=== PATIENT | male | born 1980 | race Caucasian/White ===

== ENCOUNTER 2017-06-29 08:59 | Emergency (ER) | payer OTHER ==
[~2017-06-29] VITALS: Ht 189.2 cm; Wt 107.5 kg
[~2017-06-29 08:59] MED LIST: BACTRIM DS 8001 TAB PO; EFFEXOR100 MG PO; FLOMAX 0.4MG C0.4 MG PO; LORTAB 500 MG-71 TAB PO; MOTRIN800 MG PO; PERCOCET 325 MG1 TA3 PO; PROZAC40 MG PO; TOPROL XL 50MG50 MG PO; TORADOL10 M2 PO; VOLTAREN75 MG PO; XANAX 1MG TABLET1 MG PO; ZOFRAN4 MG PO
[2017-06-29] MEDS ORDERED: FLUOXETINE20 MG PO (09:08)
--- OUTSIDE RECORDS SUMMARY | 2017-06-29 09:15 | External Medical Summary Rpt ---
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 [address]- Discharge Disposition: OP Self Care or Home Attending Physician: JESSICA ARELLANO MD-ORT Admitting Physician: JESSICA ARELLANO MD-ORJulissa Referring Physician: JESSICA ARELLANO MD-ORJulissa Reason for Visit PREPATELLAR BURSITIS, RIGHT KNEE Vital Signs No data available for this section Problem List No data available for this section Allergies, Adverse Reactions, Alerts No data available for this section Medications No data available for this section Results No data available for this section Immunizations No data available for this section Procedures No data available for this section Social History No data available for this section Assessment and Plan No data available for this section Hospital Discharge Instructions No data available for this section
--- OUTSIDE RECORDS SUMMARY | 2017-06-29 09:15 | External Medical Summary Rpt ---
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 [address]- [phone] Discharge Disposition: OP Self Care or Home Attending Physician: JESSICA ARELLANO MD-ORT Admitting Physician: JESSICA ARELLANO MD-ORJulissa Referring Physician: JESSCIA ARELLANO MD-ORJulissa Reason for Visit PREPATELLAR BURSITIS, [...]
--- OUTSIDE RECORDS SUMMARY | 2017-06-29 09:16 | External Medical Summary Rpt | CCD ---
Demographics Preferred Language Wolof Marital Status Unknown Jewish Affiliation Unknown Race Unknown Ethnic Group Unknown Author Author , ANGEL Organization [facility] Address Unknown Phone [email or web address] Immunization Name Date Rout CVX Reac Dose Comm Prov Is Faci e tion ent ider Refu lity Give sed n Td 03-0 9 999 Hist H201 No H201 (zena 6-19 oric lt), 97 al Info adso rmat rbed ion - Sour ce Unsp ecif ied
--- OUTSIDE RECORDS SUMMARY | 2017-06-29 09:16 | External Medical Summary Rpt ---
Author Author [facility]AR[facility]cazar, [employer] Organization [employer] Address Unknown Phone Unavailable
--- OUTSIDE RECORDS SUMMARY | 2017-06-29 09:16 | External Medical Summary Rpt | CCD ---
Author Author , ANGEL ALTAMIRANO Address Unknown Phone [email or web address] Purpose Continuity of Care Document - through 2016 Problems Code Diagnosis DOS Provider Status S60.00XA CONTUSION OF UNSP FINGER WITHOUT DAMAGE TO NAIL, INIT ENCNTR
--- OUTSIDE RECORDS SUMMARY | 2017-06-29 09:16 | External Medical Summary Rpt | CCD ---
Author Author , ANGEL ALTAMIRANO Address Unknown Phone [email or web address] Purpose Continuity of Care Document - through 2016 Problems Code Diagnosis DOS Provider Status S60.00XA CONTUSION OF UNSP FINGER WITHOUT DAMAGE TO NAIL, INIT ENCNTR
--- OUTSIDE RECORDS SUMMARY | 2017-06-29 09:16 | External Medical Summary Rpt | CCD ---
Author Author [employer] Organization [employer] Address Unknown Phone Unavailable Purpose Continuity of Care Document - through 2016
--- OUTSIDE RECORDS SUMMARY | 2017-06-29 09:16 | External Medical Summary Rpt | CCD ---
Demographics Preferred Language Thai Marital Status Unknown Methodist Affiliation Unknown Race Unknown Ethnic Group Unknown Author Author , ANGEL Organization [facility] Address Unknown Phone [email or web address] Immunization Name Date Rout CVX Reac Dose Comm Prov Is Faci e tion ent ider Refu lity Give sed n Td 03-0 9 999 Hist H201 No H201 (zena 6-19 oric lt), 97 al Info adso rmat rbed ion - Sour ce Unsp ecif ied
--- NOTE | 2017-06-29 09:52 | Emergency Room Report ---
History of Present Illness Time Seen by [id number] Presenting Problem in Triage Pt arrived:Walked Presenting Problem:PT C/O NECK, SHOULDER, AND BACK PAIN. POSSIBLE HERNIATED DISC. 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 N Clinical Suspician of Infection? N Mental Status: 1 - Regular (Normal Baseline) Sepsis Risk:Low Sepsis Risk Have you (or family members/close friends) recently traveled outside the [place]? N If Yes, where/when: Have you had exposure to infectious disease within the past month? N TB? Other? Specify: Patient of Ariane Zambrano, being treated for chronic radiculopathy with onset gradually several weeks ago, here because Diclofenac and tizanadine not working. Has chronic pain to left trapezius area radiating to LUE with no acute changes today. Has chronic lumbar pain due to stenosis with no change in bowel/.bladder function today. He ambulates to stretcher in [facility]. ALLERGIES Coded Allergies: MDX - Penicillin (Penicillin) (Intermediate, I-RASH 05/15/09) Converted from Drug Class Allergy: Penicillins Converted Allergy Severity of U Converted Allergy Reaction of Converted from Ingredient Allergy: Penicillin MDX - Penicillin V (From Penicillin V Potassium) (05/16/09) Converted from Generic Allergy: Penicillin V Potassium Home Medications Active Scripts Ketorolac Tromethamine (Toradol) 10 MG PO Q12HP #10 TAB Prov: 05/05/15 Reported Medications Metoprolol Succinate Xl (Toprol Xl) 50 MG PO DAILY Fluoxetine Hcl (Fluoxetine 20MG) 20 MG PO DAILY History Medical History General CAD? No Angina: No [place]: No Hypertension? Yes Hyperlipidemia? No CHF? No DVT? No PE? No COPD? No Asthma? No Anemia? No GERD? No Gastric ulcers? No GI Bleed? No Hernia? No Thyroid Problems? No Hypothyroidism? No CVA? No Seizures? No Diabetes? No Insulin Dependent: No Insulin Pump: No Home FSBS? No Renal Insuffiency? No End Stage Renal Disease? No UTI? No Stones? Yes BPH? No GB Disease: Yes Nephritic Syndrome? No Asplenia? No Hepatitis? No Sickle Cell Disease? No Arthritis? No Migraines? No Cataracts? No Glaucoma? No MRSA? No HIV? No TB? No Anxiety? No Depression? Yes Cancer? No More? No Immunization Hx DT/Tetanus 1-4 YRS Flu NEVER Pneumonia NEVER Surgical Hx Previous Surgery?Y ORAL SURGERY LITHOTRIPSY 05/03 CHOLECYSTECTOMY RIGHT KNEE Family History Family Hx Diabetes Yes CAD Yes Hypertension Yes Hyperlipidemia Yes Cancer Yes TB No Social History Smoking Hx Smoker: Current Every Day Smoker Tobacco: Yes Type Cigarettes Packs/day 1 1/2 - 2 Packs Alcohol Alcohol: No Review of Systems All Other Systems Reviewed and Negative Psychiatric/Neurological pre-existing deficit Physical Exam Vital Signs Vital Signs Date Time Temp Pulse Resp B/P Pulse O2 O2 Flow FiO2 Ox Delivery Rate 06/29 1026 98.0 60 18 137/99 96 06/29 0902 98.0 72 18 157/103 95 General Appearance normal appearance, WD/WN, no apparent distress Eye Exam - bilateral eye normal exam, bilateral eye PERRL, bilateral eye EOMI Neck normal inspection, non-tender, supple, full range of motion (pain L trapezius) Respiratory Status Yes: trachea midline, chest symmetrical, non tender chest. No: respiratory distress, tender on palpation, use of accessory muscles, pain on inspiration, pain on expiration. Lung Sounds bilateral: normal breath sounds, lungs clear. 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 Glascow Coma Scale Glascow Coma Scale Response Value EYE response: 4 Spontaneously 4 MOTOR response: 6 OBEYS 6 VERBAL response: 5 Oriented & Converses 5 Total 15 Reflexes DTR 3+ tricep (R), 3+ tricep (L) Skin intact, normal color, warm/dry, no rash cons.w/shingles Medical Decision Making LABS/Meds/Orders Pt receiving controlled substance in ED? No Departure Departure Time of Disposition 1127 Disposition DC Home or Self Care(routine) Clinical Impression Primary Impression: Left cervical radiculopathy Secondary Impressions: Chronic pain Qualifiers: Chronic pain type: other chronic pain Qualified Code: G89.29 - Other chronic pain Condition STABLE Referrals ARIANE ZAMBRANO APRN Patient Instructions Neck Pain (Alternative Therapy) Additional Instructions continue current medications; Rx Medrol Dosepak, see Ariane in one to seven days for recheck Discharge Counseling Counseled pt/family regarding diagnosis, medications/RX, home care, follow up needs Prescriptions Current Visit Scripts Methylprednisolone (Medrol Dose Partha) 4 MG PO UD #1 PARTHA TAKE DIRECTED ON PACKAGING ED Critical Care Critical Care No at [id number]
--- NOTE | 2017-06-29 09:52 | Emergency Room Report ---
History of Present Illness Time Seen by [id number] Presenting Problem in Triage Pt arrived:Walked Presenting Problem:PT C/O NECK, SHOULDER, AND BACK PAIN. POSSIBLE HERNIATED DISC. 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 N Clinical Suspician of Infection? N Mental Status: 1 - Regular (Normal Baseline) Sepsis Risk:Low Sepsis Risk Have you (or family members/close friends) recently traveled outside the [place]? N If Yes, where/when: Have you had exposure to infectious disease within the past month? N TB? Other? Specify: Patient of Ariane Zambrano, being treated for chronic radiculopathy with onset gradually several weeks ago, here because Diclofenac and tizanadine not working. Has chronic pain to left trapezius area radiating to LUE with no acute changes today. Has chronic lumbar pain due to stenosis with no change in bowel/.bladder function today. He ambulates to stretcher in [facility]. ALLERGIES Coded Allergies: MDX - Penicillin (Penicillin) (Intermediate, I-RASH 05/15/09) Converted from Drug Class Allergy: Penicillins Converted Allergy Severity of U Converted Allergy Reaction of Converted from Ingredient Allergy: Penicillin MDX - Penicillin V (From Penicillin V Potassium) (05/16/09) Converted from Generic Allergy: Penicillin V Potassium Home Medications Active Scripts Ketorolac Tromethamine (Toradol) 10 MG PO Q12HP #10 TAB Prov: 05/05/15 Reported Medications Metoprolol Succinate Xl (Toprol Xl) 50 MG PO DAILY Fluoxetine Hcl (Fluoxetine 20MG) 20 MG PO DAILY History Medical History General CAD? No Angina: No [place]: No Hypertension? Yes Hyperlipidemia? No CHF? No DVT? No PE? No COPD? No Asthma? No Anemia? No GERD? No Gastric ulcers? No GI Bleed? No Hernia? No Thyroid Problems? No Hypothyroidism? No CVA? No Seizures? No Diabetes? No Insulin Dependent: No Insulin Pump: No Home FSBS? No Renal Insuffiency? No End Stage Renal Disease? No UTI? No Stones? Yes BPH? No GB Disease: Yes Nephritic Syndrome? No Asplenia? No Hepatitis? No Sickle Cell Disease? No Arthritis? No Migraines? No Cataracts? No Glaucoma? No MRSA? No HIV? No TB? No Anxiety? No Depression? Yes Cancer? No More? No Immunization Hx DT/Tetanus 1-4 YRS Flu NEVER Pneumonia NEVER Surgical Hx Previous Surgery?Y ORAL SURGERY LITHOTRIPSY 05/03 CHOLECYSTECTOMY RIGHT KNEE Family History Family Hx Diabetes Yes CAD Yes Hypertension Yes Hyperlipidemia Yes Cancer Yes TB No Social History Smoking Hx Smoker: Current Every Day Smoker Tobacco: Yes Type Cigarettes Packs/day 1 1/2 - 2 Packs Alcohol Alcohol: No Review of Systems All Other Systems Reviewed and Negative Psychiatric/Neurological pre-existing deficit Physical Exam Vital Signs Vital Signs Date Time Temp Pulse Resp B/P Pulse O2 O2 Flow FiO2 Ox Delivery Rate 06/29 1026 98.0 60 18 137/99 96 06/29 0902 98.0 72 18 157/103 95 General Appearance normal appearance, WD/WN, no apparent distress Eye Exam - bilateral eye normal exam, bilateral eye PERRL, bilateral eye EOMI Neck normal inspection, non-tender, supple, full range of motion (pain L trapezius) Respiratory Status Yes: trachea midline, chest symmetrical, non tender chest. No: respiratory distress, tender on palpation, use of accessory muscles, pain on inspiration, pain on expiration. Lung Sounds bilateral: normal breath sounds, lungs clear. 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 Glascow Coma Scale Glascow Coma Scale Response Value EYE response: 4 Spontaneously 4 MOTOR response: 6 OBEYS 6 VERBAL response: 5 Oriented & Converses 5 Total 15 Reflexes DTR 3+ tricep (R), 3+ tricep (L) Skin intact, normal color, warm/dry, no rash cons.w/shingles Medical Decision Making LABS/Meds/Orders Pt receiving controlled substance in ED? No Departure Departure Time of Disposition 1127 Disposition DC Home or Self Care(routine) Clinical Impression Primary Impression: Left cervical radiculopathy Secondary Impressions: Chronic pain Qualifiers: Chronic pain type: other chronic pain Qualified Code: G89.29 - Other chronic pain Condition STABLE Referrals ARIANE ZAMBRANO APRN Patient Instructions Neck Pain (Alternative Therapy) Additional Instructions continue current medications; Rx Medrol Dosepak, see Ariane in one to seven days for recheck Discharge Counseling Counseled pt/family regarding diagnosis, medications/RX, home care, follow up needs Prescriptions Current Visit Scripts Methylprednisolone (Medrol Dose Partha) 4 MG PO UD #1 PARTHA TAKE DIRECTED ON PACKAGING ED Critical Care Critical Care No at [id number]
[2017-06-29] MEDS ORDERED: MEDROL 4MG. DOSE4 MG PO (11:29)
[2017-06-29 13:05] VITALS: BP 142/90
== END 2017-06-29 13:05 | disposition home or self-care (01) ==
LOC: ER 08:59
DX: M54.12 Radiculopathy, cervical region (principal); G89.29 Other chronic pain; F17.210 Nicotine dependence, cigarettes, uncomplicated; I10 Essential (primary) hypertension; Z88.0 Allergy status to penicillin